=== PATIENT | female | born 1945 | race Caucasian/White ===

== ENCOUNTER 2016-08-26 16:38 | Emergency (ER) | payer OTHER, MEDICARE ==
[~2016-08-26] VITALS: Ht 157.5 cm; Wt 62.6 kg
[~2016-08-26 16:38] MED LIST: AMLO1TAB2 PO; CAND32TA2 PO
--- NOTE | 2016-08-26 16:50 | NUR ---
Pt bib self, cc: cough and congestion, fever, body aches since yesterday. Pt alert oriented. Placed on monitor. VSS. Awaiting md order.
[2016-08-26] MEDS ORDERED: ACETAMINOPHEN 325 MG TABLET PO ONE (17:00)
[2016-08-26] MEDS ORDERED: ACETAMINOPHEN ES 500 MG TABLET ONE (17:01)
--- NOTE | 2016-08-26 17:19 | NUR ---
XRAY AT BEDSIDE
[2016-08-26 18:26] VITALS: BP 135/70
--- NOTE | 2016-08-26 18:26 | NUR ---
Patient discharged to home in stable condition. Written and verbal after care instructions given. Patient verbalizes understanding of instruction.
== END 2016-08-26 18:27 | disposition home or self-care (01) ==
LOC: ER 16:40
DX: J40 Bronchitis, not specified as acute or chronic (principal); I10 Essential (primary) hypertension; Z90.89 Acquired absence of other organs; Z88.2 Allergy status to sulfonamides
CPT/HCPCS: 71010-TC; A4606; Z7610

== ENCOUNTER 2020-10-14 11:46 | Emergency (ER) | payer MEDICARE, OTHER ==
[~2020-10-14] VITALS: Ht 157.5 cm; Wt 64.4 kg
[~2020-10-14 11:46] MED LIST changes: +ATOR10TA PO; +BENA20TA9 PO; -CAND32TA2 PO; +CAND32TA20 PO
[2020-10-14] MEDS ORDERED: AMLO-212 PO (11:55)
[2020-10-14] MEDS ORDERED: ONDANSETRON 4 MG TAB.RAPDIS SL ONE (12:00)
[2020-10-14] MEDS ORDERED: HYDROCODONE/APAP 5/325MG TABLET PO ONE (12:00)
[2020-10-14] MEDS ORDERED: ONDANSETRON 4 MG TAB.RAPDIS ONE (12:07)
[2020-10-14] MEDS ORDERED: HYDROCODONE/APAP 5/325MG TABLET ONE (12:07)
--- NOTE | 2020-10-14 13:38 | NUR ---
Pt states "feeling a lot better" MD in to update w/results Patient discharged to home in stable condition. Written and verbal after care instructions given. Patient verbalizes understanding of instruction.
[2020-10-14] MEDS ORDERED: HYDR-4303 PO (13:41)
[2020-10-14 13:45] VITALS: BP 135/70
== END 2020-10-14 13:47 | disposition home or self-care (01) ==
LOC: ER 11:52
DX: S20.212A Contusion of left front wall of thorax, initial encounter (principal); I10 Essential (primary) hypertension; Z90.89 Acquired absence of other organs; Z88.2 Allergy status to sulfonamides; Z79.899 Other long term (current) drug therapy; W01.0XXA Fall on same level from slipping, tripping and stumbling without subsequent striking against object, initial encounter; Y93.89 Activity, other specified; Y92.89 Other specified places as the place of occurrence of the external cause; Y99.8 Other external cause status
CPT/HCPCS: 71100; 99283; Q0162